=== PATIENT | female | born 2000 | race Caucasian/White ===

== ENCOUNTER 2021-06-03 17:25 | Emergency (ER) | payer OTHER ==
[~2021-06-03 17:25] MED LIST: PRENATAL VITAM1 EAC6 PO
[2021-06-03 18:37] LABS: RED BLOOD COUNT 4.71 M/UL (4.00-5.10); WHITE BLOOD COUNT 13.3 K/UL (4.5-11.0)
[2021-06-03 19:01] LABS: BUN/CREATININE RATIO 15 (0-10)
[2021-06-03] MEDS ORDERED: REGLAN10 MG PO (21:58)
== END 2021-06-03 22:23 | disposition home or self-care (01) ==
LOC: ER1 17:25
PROVIDERS: Physician Assistant
DX: O21.0 Mild hyperemesis gravidarum (principal); O99.331 Smoking (tobacco) complicating pregnancy, first trimester; F17.290 Nicotine dependence, other tobacco product, uncomplicated; Z20.822 Contact with and (suspected) exposure to COVID-19
CPT/HCPCS: 80053; 81001; 84702; 85025; 96374; 99284; J2550; J2765; J7030; J7120; U0002